=== PATIENT | female | born 2000 | race Caucasian/White ===

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

== ENCOUNTER 2018-07-01 17:34 | Emergency (ER) | payer BC ==
[2018-07-01] MEDS ORDERED: Acetaminophen TAB* 325 MG PO ONE (17:58)
--- NOTE | 2018-07-01 18:04 | ED ---
Allergic Reaction/Systemic - HPI Summary HPI Summary: The patient is a 18 y/o F presenting to [facility] arriving by ambulance with a chief complaint of an adverse reaction to the Depo-Provera shot given 10 minutes FORMAL WAITER/WAITRESS. She went to [facility] in [place] to get the shot and was discharge right after. On her way home while she was driving, she had sudden onset diffuse chest heaviness and SOB so she called EMS. The pain is currently rated 5/10 in severity. She additionally c/o headache, rash at site of injection , diffuse abd cramping, and nausea. She denies vomiting, dizziness, and numbness or tingling. This was the first time she had gotten this shot. She takes Valtrex. She has been eating and drinking normally. Past hx of possible food intolerances but not confirmed. - History of Current Complaint Chief Complaint: EDAllergicReaction Time Seen by Provider: 07/01/18 17:35 Hx Obtained From: Patient Hx Last Menstrual Period: 08/11/17 Onset/Duration: Sudden Onset, Started minutes ago - 10 minutes FORMAL WAITER/WAITRESS, Still Present Timing: Lasting Minutes Severity Initially: Moderate Severity Currently: Moderate Pain Intensity: 5 Pain Scale Used: 0-10 Numeric Aggravating Factor(s): Nothing Alleviating Factor(s): Nothing Associated Signs And Symptoms: Positive: Abdominal Pain - diffuse cramping, Chest Pain - diffuse heaviness, Difficulty Breathing, Nausea, Other: - POSITIVE : headache; NEGATIVE: dizziness, numbness, tingling. Negative: Vomiting - Allergies/Home Medications Allergies/Adverse Reactions: Allergies Allergy/AdvReac Type Severity Reaction Status Date / Time No Known Allergies Allergy Verified 09/13/17 17:52 Home Medications: Home Medications ValACYclovir (*) [Valtrex 1 GM(*)] 1 gm PO DAILY 07/01/18 [History Confirmed 04/09] PMH/Surg Hx/FS Hx/Imm Hx Endocrine/Hematology History: Denies: Hx Anticoagulant Therapy Cardiovascular History: Denies: Hx Hypertension Respiratory History: Reports: Hx Asthma - EXERCISE INDUCED Psychiatric History: Denies: Hx Anxiety - Surgical History Surgery Procedure, Year, and Place: [facility] Infectious Disease History: Yes Infectious Disease History: Denies: Traveled Outside the [place] in Last 30 Days - Family History Known Family History: Positive: Cardiac Disease - Social History Alcohol Use: Occasionally Hx Substance Use: No Substance Use Type: Reports: None Hx Tobacco Use: No Smoking Status (MU): Never Smoked Tobacco Review of Systems Negative: Fever, Chills Negative: Erythema Negative: Sore Throat Positive: Chest Pain - diffuse heaviness Positive: Shortness Of Breath. Negative: Cough Positive: Abdominal Pain - diffuse cramping, Nausea. Negative: Vomiting Negative: dysuria, hematuria Negative: Myalgia, Edema Negative: Rash Neurological: Other - NEGATIVE: dizziness Positive: Headache. Negative: Numbness All Other Systems Reviewed And Are Negative: Yes Physical Exam - Summary Physical Exam Summary: Constitutional: Well-developed, Well-nourished, Alert. (-) Distressed Skin: Warm, Palms are diaphoretic HENT: Normocephalic; Atraumatic Eyes: Conjunctiva normal Neck: Musculoskeletal ROM normal neck. (-) JVD, (-) Stridor, (-) Tracheal deviation Cardio: Rhythm regular, rate normal, Heart sounds normal; Intact distal pulses; The pedal pulses are 2+ and symmetric. Radial pulses are 2+ and symmetric. (-) Murmur Pulmonary/Chest wall: Effort normal. (-) Respiratory distress, (-) Wheezes, (-) Rales Abd: Soft, (-) epigastric tenderness, (-) Distension, (-) Guarding, (-) Rebound Musculoskeletal: (-) Edema Lymph: (-) Cervical adenopathy Neuro: Alert, Oriented x3 Psych: Mood and affect Normal Triage Information Reviewed: Yes Vital Signs On Initial Exam: Initial Vitals Temp Pulse Resp BP Pulse Ox 98.4 F 89 16 135/82 100 07/01/18 17:36 07/01/18 17:36 07/01/18 17:36 07/01/18 17:36 07/01/18 17:36 Vital Signs Reviewed: Yes Diagnostics - Vital Signs Vital Signs Temp Pulse Resp BP Pulse Ox 07/01/18 17:36 98.4 F 89 16 135/82 100 - Laboratory Lab Statement: Any lab studies that have been ordered have been reviewed, and results considered in the medical decision making process. Re-Evaluation - Re-Evaluation First Eval Re-Evaluation Time: 19:10 Change: Improved Comment: The patient is feeling better. Her vital signs are stable. We discussed discharge home and follow up with CREDIT AND COLLECTION MANAGER. Allergic Reaction Course/Dx - Course Course Of Treatment: The patient is a 18 y/o F presenting to [facility] arriving by ambulance with a chief complaint of an adverse reaction to the Depo-Provera shot given 10 minutes FORMAL WAITER/WAITRESS. On her way home while she was driving, she had sudden onset diffuse chest heaviness and SOB sos she called EMS. She additionally c/o headache, diffuse abd cramping, and nausea. She denies vomiting , dizziness, and numbness or tingling. This was the first time she had gotten this shot. She takes Valtrex. Upon physical exam, the patient exhibits diaphoretic palms. At 1910, her vital signs are stable. I suspect vasovagal response. She will be discharged home with vasovagal response, and she will follow up with CREDIT AND COLLECTION MANAGER tomorrow for report of reaction, and in the next 1-2 days for re-eval. She agrees with this plan and understands the need for return to the ED for any new or worsening symptoms. - Diagnoses Provider Diagnoses: Vasovagal response Discharge - Sign-Out/Discharge Documenting (check all that apply): Patient Departure - Patient will be discharged home. - Discharge Plan Condition: Stable Disposition: HOME Patient Education Materials: General Allergic Reaction (ED) Referrals: Derek Mariee, REVENUE COORDINATOR [Primary Care Provider] - 3 Days Additional Instructions: Follow up with your CREDIT AND COLLECTION MANAGER in 1-2 days, but call the CREDIT AND COLLECTION MANAGER tomorrow to report the reaction. RETURN TO THE EMERGENCY DEPARTMENT FOR ANY NEW OR WORSENING SYMPTOMS. - Billing Disposition and Condition Condition: STABLE Disposition: Home - Attestation Statements Document Initiated by Nellie: Yes Documenting Scribe: Elizabeth Nicholson Provider For Whom Nellie is Documenting (Include Credential): Dr. Manuel Baptiste MD Scribe Attestation: Elizabeth Reilly, scribed for Dr. Manuel Baptiste MD on 07/01/18 at 1911. Scribe Documentation Reviewed: Yes Provider Attestation: The documentation as recorded by the Elizabeth perez accurately reflects the service I personally performed and the decisions made by me, Dr. Manuel Baptiste MD Status of Scribe Document: Viewed
[2018-07-01 19:21] VITALS: BP 129/76
== END 2018-07-01 19:20 | disposition home or self-care (01) ==
LOC: ED 17:34
DX: R55 Syncope and collapse (principal); R10.9 Unspecified abdominal pain; R07.9 Chest pain, unspecified; R06.02 Shortness of breath; R11.0 Nausea; R51 Headache
CPT/HCPCS: 99282; A9270-GY